=== PATIENT | male | born 1960 | race American Indian/Alaskan Native ===

== ENCOUNTER 2019-06-28 12:43 | Day surgery (SDC) | payer OTHER ==
[~2019-06-28 12:43] MED LIST: ceFAZolin/STERILE WATER 2 GM/20 ML SYRINGE IV NR
[2019-06-28] MEDS ORDERED: SODIUM CHLORIDE 0.9% 1000 ML 1,000 ML ONE (12:58)
--- NOTE | 2019-06-28 13:13 | Anesthesia Consultation ---
Anesthesia Consult and Med Hx Date of service: 06/28/19 - Airway Anesthetic Teeth Evaluation: Good ROM Head & Neck: Adequate Mental/Hyoid Distance: Adequate Mallampati Class: Class II Intubation Access Assessment: Good - Pulmonary Exam CTA: Yes - Cardiac Exam Cardiac Exam: RRR - Pre-Operative Health Status ASA Pre-Surgery Classification: ASA3 Proposed Anesthetic Plan: General, MAC (HTN, DM, Obesity) - Pulmonary Hx Smoking: Yes Hx Sleep Apnea: No (IGOR HIGH RISK ON PRESCREEN) - Central Nervous System Hx Psychiatric Problems: No - Hematic Hx Anemia: No - Other Systems Hx Alcohol Use: Yes (RARE BEER) Hx Cancer: No
--- NOTE | 2019-06-28 13:13 | Anesthesia Day of Surgery ---
Anesthesia Day of Surgery - Day of Surgery Patient Examined: Yes Patient H&P Reviewed: Yes Patient is NPO: Yes
[2019-06-28] MEDS ORDERED: INSULIN REGULAR, HUMAN 100 UNITS/1 ML IV ONE (13:25)
[2019-06-28] MEDS ORDERED: MIDAZOLAM 2 MG/2 ML INJ IV NR (14:00)
[2019-06-28] MEDS ORDERED: SODIUM CHLORIDE 0.9% 1000 ML 1,000 ML IV SCH (14:00)
[2019-06-28] MEDS ORDERED: ONDANSETRON 4 MG/2 ML INJ ONE (15:00)
[2019-06-28] MEDS ORDERED: dexAMETHasone 20 MG/5 ML VIAL ONE (15:00)
[2019-06-28] MEDS ORDERED: LIDOCAINE MPF (2%) 20 MG/1 ML VIAL 5 ML ONE (15:08)
[2019-06-28] MEDS ORDERED: fentaNYL 100 MCG/2 ML INJ ONE ×3 (15:09→16:03)
[2019-06-28] MEDS ORDERED: PROPOFOL 200 MG/20 ML VIAL IV ONE (15:09)
[2019-06-28] MEDS ORDERED: SODIUM CHLORIDE 0.9% IRR 1,500 ML BOTTLE IR ONE (16:06)
--- NOTE | 2019-06-28 16:36 | Short Stay Summary ---
Short Stay Documentation Date of service: 06/28/19 - History H&P: obtained from office - Allergies and Medications Current Medications: Allergies No Known Allergies Allergy (Unverified 06/16/19 12:03) Home Medications Medication Instructions Recorded Confirmed Last Taken Type Atorvastatin 10 mg PO QDAY 06/28/19 06/28/19 Unknown History glipiZIDE [Glucotrol] 5 mg PO QDAY 06/28/19 06/28/19 Unknown History metFORMIN [Glucophage] 500 mg PO QDAY 06/28/19 06/28/19 Unknown History Active Medications Cefazolin Sodium (Ancef/Sterile Water 2 Gm/20 Ml) 2 gm IV PREOP NR Stop: 06/28/19 20:00 Sodium Chloride (Nacl 0.9% 1000 Ml) 1,000 mls @ 100 mls/hr IV DIRECT DMITRY Last Admin: 06/28/19 13:15 Dose: 100 mls/hr Documented by: Midazolam HCl (Versed) 2 mg IV PREOP NR Stop: 06/28/19 23:59 Last Admin: 06/28/19 14:30 Dose: 2 mg Documented by: - Brief post op/procedure progress note Date of procedure: 06/28/19 Pre-op diagnosis: phimosis Post-op diagnosis: same Procedure: circ Anesthesia: GETA Surgeon: LAURA DELGADILLO Estimated blood loss: minimal Pathology: list (foreskin) Specimen disposition: to lab Condition: stable - Hospital course Hospital course: iris & wilma on chart - Disposition Condition at discharge: Stable Disposition: DC-01 TO HOME OR SELFCARE Short Stay Discharge Plan Follow up with: [facility] [Primary Care Provider] - 7 Days
--- NOTE | 2019-06-28 17:06 | Operative Report ---
PREOPERATIVE DIAGNOSIS: Phimosis. POSTOPERATIVE DIAGNOSIS: Phimosis. PROCEDURE: Circumcision. SURGEON: Dennis Fallon M.D. ANESTHESIA: General. ESTIMATED BLOOD LOSS: Minimal. FLUIDS: Crystalloid. COMPLICATIONS: No complications. INDICATIONS: This patient is a 58-year-old gentleman seen in the office with significant phimosis, also has a history of diabetes. We were unable to retract his foreskin. He was given a trial of antibiotic therapy with no response. Risks, benefits, and complications were explained. He presents now for surgical intervention. DESCRIPTION OF PROCEDURE: The patient was taken to the operative suite, placed in a supine position. After adequate general anesthesia, the penis was prepped and draped in a sterile fashion. We were unable to retract the foreskin and therefore a dorsal and ventral slit was made. Foreskin was marked at the level of the coronal ridge. It was retracted. Betadine swab was then used to clean the glans penis. Foreskin was then circumferentially removed. Shaft skin was retracted anteriorly. Adequate hemostasis was achieved. Proximal and distal shaft skin was reapproximated and closed with 2-0 chromic in interrupted fashion. Xeroform gauze was placed on the incision. Manuel and Coban was placed on the entire shaft, exposing the tip of the glans for urination. The patient tolerated the procedure well and was extubated and taken to recovery room. He will go home on Bactrim and [place]. We will take his dressing off in the morning. JOB# [id number] VALDE[facility]/MATEO
[2019-06-28] MEDS ORDERED: HYDROmorphone 1 MG/1 ML INJ ONE (17:07)
[2019-06-28] MEDS: HYDROmorphone 1 MG/1 ML INJ IV PRN ×2 (17:07→17:17)
[2019-06-28] MEDS ORDERED: ONDANSETRON 4 MG/2 ML INJ IV PRN (17:08)
[2019-06-28] MEDS ORDERED: HYDROcodone/ACETAMINOPHEN 5-325 MG TAB PO PRN (17:09)
[2019-06-28 17:46] VITALS: BP 141/91
--- NOTE | 2019-06-28 17:47 | Post Anesthesia Evaluation ---
- Post Anesthesia Evaluation Patient Participated: Yes Airway Patent: Yes Stable Respiratory Function: Yes Nausea/Vomiting: No Temp > 96.8F: Yes Pain Manageable: Yes Adequeate Hydration: Yes Anesthesia Complications: No Block Receding Appropriately: Not Applicable Patient on Ventilator: No
== END 2019-06-28 18:35 | disposition home or self-care (01) ==
LOC: OR 12:43
PROVIDERS: ATTEND Urology
DX: N47.1 Phimosis (principal); E11.9 Type 2 diabetes mellitus without complications; I10 Essential (primary) hypertension; E78.00 Pure hypercholesterolemia, unspecified; Z79.899 Other long term (current) drug therapy; Z79.84 Long term (current) use of oral hypoglycemic drugs; Z72.89 Other problems related to lifestyle; Z98.890 Other specified postprocedural states
CPT/HCPCS: 54161; 82962; 88304; J0690; J1100; J1170; J2250; J2405; J2704; J3010; J7030; J1815